=== PATIENT | female | born 1985 | race American Indian/Alaskan Native ===

== ENCOUNTER 2022-05-26 10:51 | Emergency (ER) | payer MEDICAID ==
[2022-05-26] MEDS ORDERED: Sodium Chloride 0.9% 10 ML Syringe FLUSH PRN ×2 (11:20→13:58)
[2022-05-26] MEDS ORDERED: Ondansetron 4 MG/2 ML SDV IVPUSH ONE (11:20)
[2022-05-26] MEDS ORDERED: Famotidine 20 MG/2 ML SDV IVPUSH ONE (11:21)
[2022-05-26] MEDS ORDERED: HYDROmorphone 0.5 MG/0.5 ML Syringe IVPUSH ONE (11:22)
[2022-05-26] MEDS ORDERED: Pantoprazole 40 MG Vial IVPUSH ONE (11:22)
[2022-05-26] MEDS ORDERED: Metoclopramide 10 MG/2 ML SDV IVPUSH ONE (12:15)
[2022-05-26] MEDS ORDERED: Iopamidol 612 MG/ML 100 ML Bottle IVPUSH ONE (13:58)
[2022-05-26] MEDS ORDERED: Acetaminophen 325 MG Tab PO ONE (14:58)
== END 2022-05-26 15:36 | disposition home or self-care (01) ==
LOC: MERGE 10:51 → JD.ED 10:51
DX: N83.202 Unspecified ovarian cyst, left side (principal); K44.9 Diaphragmatic hernia without obstruction or gangrene; K21.00 Gastro-esophageal reflux disease with esophagitis, without bleeding; R00.0 Tachycardia, unspecified; I10 Essential (primary) hypertension; Z87.891 Personal history of nicotine dependence; Z91.013 Allergy to seafood; Z79.899 Other long term (current) drug therapy
CPT/HCPCS: 36415; 71045; 74177; 76705; 80053; 83690; 84484; 85025; 93005; 96374; 96375; 99285; A9270; C9113; J1170; J2405; J2765; J3490; Q9967